=== PATIENT | female | born 1950 | race American Indian/Alaskan Native ===

== ENCOUNTER 2017-09-04 09:56 | Emergency (ER) | payer MEDICARE, OTHER ==
[2017-09-04 10:23] VITALS: BP 164/77
[2017-09-04] MEDS ORDERED: ASPIRIN PO ONE (10:25)
[2017-09-04 10:40] LABS: Basophils % (Auto) 0.6 % (0.0-1.8); Hematocrit 37.6 % (30.3-42.9); Hemoglobin 12.2 gm/dl (10.1-14.3); Lymphocytes # (Auto) 1.1 K/mm3 (1.2-5.4); Lymphocytes % (Auto) 24.7 % (13.4-35.0); Mean Corpuscular HGB Conc 32 % (30-34); Mean Corpuscular Hemoglobin 30 pg (28-32); Mean Corpuscular Volume 92 fl (79-97); Monocytes # (Auto) 0.7 K/mm3 (0.0-0.8); Monocytes % (Auto) 15.2 % (0.0-7.3); Platelet Count 193 K/mm3 (140-440); Red Blood Count 4.09 M/mm3 (3.65-5.03); Red Cell Distribution Width 14.3 % (13.2-15.2)
[2017-09-04 10:56] LABS: INR 0.99 (0.87-1.13); Partial Thromboplastin Time 32.4 Sec. (24.2-36.6)
[2017-09-04 11:01] LABS: BUN/Creatinine Ratio 8; Blood Urea Nitrogen 9 mg/dL (7-17); Calcium 9.4 mg/dL (8.4-10.2); Hemolysis Index 9
== END 2017-09-04 18:30 | disposition left against medical advice (07) ==
LOC: ED 09:56
DX: R07.9 Chest pain, unspecified (principal); R20.0 Anesthesia of skin; Z53.21 Procedure and treatment not carried out due to patient leaving prior to being seen by health care provider
CPT/HCPCS: 36415; 80048; 84484; 85025; 85610; 85730; 93005; 93010